=== PATIENT | female | born 1970 | race Caucasian/White ===

== ENCOUNTER 2020-06-08 11:49 | Emergency (ER) | payer OTHER ==
[~2020-06-08] VITALS: Ht 175.3 cm; Wt 102.1 kg
[2020-06-08 12:55] VITALS: BP 139/82
== END 2020-06-08 12:56 | disposition home or self-care (01) ==
LOC: M.ERS 11:49
DX: S61.412A Laceration without foreign body of left hand, initial encounter (principal); E78.00 Pure hypercholesterolemia, unspecified; Z90.89 Acquired absence of other organs; Z90.710 Acquired absence of both cervix and uterus; Z88.6 Allergy status to analgesic agent; W26.8XXA Contact with other sharp object(s), not elsewhere classified, initial encounter; Y93.89 Activity, other specified; Y92.89 Other specified places as the place of occurrence of the external cause; Y99.8 Other external cause status

== ENCOUNTER 2020-07-28 21:02 | Emergency (ER) | payer OTHER ==
[~2020-07-28] VITALS: Ht 175.3 cm; Wt 102.1 kg
[2020-07-28 21:31] LABS: URINE BILIRUBIN NEGATIVE (Negative); URINE BLOOD NEGATIVE (Negative); URINE CLARITY CLEAR; URINE COLOR YELLOW; URINE GLUCOSE-RANDOM NEGATIVE (Negative); URINE KETONES NEGATIVE (Negative); URINE LEUKOCYTES-REFLEX 1+ (Negative); URINE NITRITE-REFLEX NEGATIVE (Negative); URINE PROTEIN NEGATIVE (Negative); URINE UROBILINOGEN 0.2 E.U./dl (0.2-1.0)
[2020-07-28 21:42] LABS: BE -0.5 mmol/L (-2 to +3); PCO2 28.2 mmHg (35.0-45.0); PO2 123.8 mmHg (75.0-100.0)
[2020-07-28 21:44] LABS: MUCUS None Seen strn/LPF (None Seen); SQUAMOUS 4-10 Moderate /LPF (0-3)
[2020-07-28 21:45] LABS: BACTERIA-REFLEX None Seen /HPF (None Seen); CASTS None Seen /LPF (None Seen); CRYSTALS None Seen /LPF (None Seen); URINE RBC None Seen /HPF (0-2); URINE WBC-REFLEX 6-15 Few /HPF (0-5)
[2020-07-28 21:50] LABS: ABSOLUTE BASOPHILS 0.1 thou/uL (0.0-0.2); ABSOLUTE EOSINOPHILS 0.1 thou/uL (0.0-0.7); ABSOLUTE LYMPHOCYTES 1.4 thou/uL (0.8-5.3); ABSOLUTE MONOCYTES 0.9 thou/uL (0.0-1.2); ABSOLUTE NEUTROPHILS 8.4 thou/uL (1.6-8.1); BASOPHILS 0.5 %; EOSINOPHILS 0.6 %; HEMATOCRIT 37.3 % (37.0-47.0); HEMOGLOBIN 12.8 gm/dL (12.0-15.0); LYMPHOCYTES 12.8 %; MCH 31.7 pg (26.0-34.0); MCHC 34.4 g/dL (28.0-37.0); MCV 92.2 fL (80.0-100.0); MPV 7.8 fl. (7.2-11.1); NUCLEATED RBCS 0 /100WBC; PLATELET COUNT* 292 thou/uL (150-400); POLYS 78.1 %; RBC 4.04 mil/uL (4.20-5.00); RDW-CV 13.8 % (10.5-14.5); WBC 10.7 thou/uL (4.0-11.0)
[2020-07-28 22:04] LABS: CALCIUM 8.4 mg/dL (8.5-10.1); CREATININE 1.2 mg/dL (0.6-1.3); POTASSIUM 3.8 mmol/L (3.5-5.1)
[2020-07-28 22:09] LABS: ALBUMIN 3.5 g/dL (3.4-5.0); MAGNESIUM 1.7 mg/dL (1.8-2.4); TOTAL BILIRUBIN 0.6 mg/dL (<0.1-1.0)
[2020-07-28 23:03] LABS: INFLUENZA A ANTIGEN Negative (Negative); INFLUENZA B ANTIGEN Negative (Negative)
[2020-07-29 01:06] VITALS: BP 112/49
--- NOTE | 2020-07-29 11:07 | EKG ---
[place] [address] ELECTROCARDIOGRAM REPORT Name: MAIN MENDOZA Room: [facility]#: [id number] Admission: 07/28/20 Attend Phys: Discharge: 07/29/20 Date of : 66 Date of Service: 07/28/202115 Report #: [id number] THIS REPORT FOR: //name// [facility] ED Test Date: 2020-07-28 Test Time: 21:16:03 Pat Name: MAIN MENDOZA Department: Room: Gender: [employer]visor: RADHA : 1970 Requested By: Bianca Haque Order Number: [id number] Rafiq MD: Marquise Webb Measurements Intervals Norris Rate: 106 P: 64 CT: 150 QRS: 18 QRSD: 84 T: 33 QT: 347 QTc: 461 Interpretive Statements Sinus tachycardia Probable left atrial enlargement Baseline wander in lead(s) V6 No previous ECG available for comparison Electronically Signed On 07-29-2020 11:07:11 CDT by Marquise Webb [email or web address] <ELECTRONICALLY SIGNED> By: Marquise Webb MD, [facility] 07/29/20 1107 15 15 Marquise Webb MD, [facility] /EPI
== END 2020-07-29 01:07 | disposition home or self-care (01) ==
LOC: M.ERS 21:02
PROVIDERS: Personal Emergency Response Attendant
DX: J06.9 Acute upper respiratory infection, unspecified (principal); Z20.822 Contact with and (suspected) exposure to COVID-19; E86.0 Dehydration; E78.00 Pure hypercholesterolemia, unspecified; Z90.710 Acquired absence of both cervix and uterus; Z90.89 Acquired absence of other organs